=== PATIENT | male | born 1970 | race Caucasian/White ===

== ENCOUNTER → 2016-08-16 | Outpatient (CLI) | payer OTHER | END | disposition home or self-care (01) | LOC: C.LABBC 11:31 | PROVIDERS: ATTEND Family Medicine | DX: E03.9 Hypothyroidism, unspecified (principal) ==

== ENCOUNTER → 2016-09-27 | Outpatient (CLI) | payer OTHER ==
[~2016-09-27] MED LIST: MAGNEVIST IV PRN
--- NOTE | 2016-09-27 14:02 | DIAGNOSTIC IMAGING REPORT ---
FLUOROSCOPIC GUIDED RIGHT HIP ARTHROGRAM FLUOROSCOPY TIME: 5 seconds. HISTORY: Right hip pain. PROCEDURE: After obtaining written informed consent, the patient was placed supine on the fluoroscopy table. A suitable site for needle insertion was marked using fluoroscopic guidance. The right hip was prepped and draped in the usual sterile fashion. 1% lidocaine was used for skin, subcutaneous and deep soft tissue anesthesia. Under intermittent fluoroscopic guidance, a 22 gauge 3.5 inch spinal needle was inserted into the right hip joint. A total of 14 cc of one-to-one mixture of dilute Magnevist (0.1 cc in 10 cc saline) and Optiray 300 were injected. The needle was then removed. There were no apparent complications. The patient was transported to for further imaging. IMPRESSION: Fluoroscopic-guided right hip arthrogram without immediate complication. Total injected volume was 14 cc. MR portion of the examination will be dictated separately. Electronically signed by: Jose A Gee M.D. 09/27/2016 2:00 PM Dictated Date/Time: 09/27/2016 1:59 PM
--- NOTE | 2016-09-27 14:23 | DIAGNOSTIC IMAGING REPORT ---
MR RIGHT HIP ARTHROGRAM HISTORY: RIGHT HIP PAIN Right TECHNIQUE: Multiplanar multisequence MRI of the right hip was performed following the intra-articular injection of contrast. COMPARISON STUDY: None. FINDINGS: No fracture or dislocation within the right hip. There is mild subchondral marrow edema within the superior aspect of the acetabulum. There is mild cartilage thinning at the superior aspect of the right hip consistent with degenerative change. Normal signal intensity within the visualized right hip musculature. Linear focus of abnormal signal/contrast within the superior labrum consistent with a tear. IMPRESSION: 1. Superior labral tear. 2. Mild right hip osteoarthritis. Electronically signed by: Jose A Gee M.D. 09/27/2016 2:22 PM Dictated Date/Time: 09/27/2016 2:07 PM
== END | disposition home or self-care (01) ==
LOC: C.MRIBC 12:37
PROVIDERS: ATTEND Orthopaedic Surgery
DX: M25.551 Pain in right hip (principal)

== ENCOUNTER → 2016-12-20 | Outpatient (CLI) | payer OTHER ==
[2016-12-20 15:03] LABS: BLOOD UREA NITROGEN 23 mg/dl (7-18); BUN/CREATININE RATIO 23.1 (10-20); CALCIUM 8.5 mg/dl (8.5-10.1); CARBON DIOXIDE 27 mmol/L (21-32); CREATININE 0.98 mg/dl (0.60-1.40); GLUCOSE 100 mg/dl (70-99)
[2016-12-20 15:49] LABS: CHLORIDE 111 mmol/L (98-107); POTASSIUM 4.1 mmol/L (3.5-5.1); SODIUM 146 mmol/L (136-145)
== END | disposition home or self-care (01) ==
LOC: C.LABBC 11:34
PROVIDERS: ATTEND Family Medicine
DX: E03.9 Hypothyroidism, unspecified (principal); Z79.1 Long term (current) use of non-steroidal anti-inflammatories (NSAID)